=== PATIENT | female | born 1930 | race Caucasian/White ===

== ENCOUNTER 2016-07-29 22:30 | Emergency (ER) | payer OTHER ==
[~2016-07-29] VITALS: Ht 157.5 cm; Wt 45.4 kg
--- NOTE | 2016-07-29 22:42 | NUR ---
PT TRASFERRED TO [facility] FOR FURTHER CARE D/T POSSIBLE S/S OF STROKE DETERMINED BY ER .
[2016-07-29 22:45] VITALS: BP 119/63
--- NOTE | 2016-07-29 22:45 | NUR ---
Dr Nelson assessed pt and instructed EMS to continue on to [facility] due to facial droop and other signs and symptoms of CVA. Did not have time to assess pt.
--- NOTE | 2016-07-29 22:45 | NUR ---
PT TAKEN BY [facility] TO [facility]: RIP OSCAR.
== END 2016-07-29 22:45 | disposition short-term general hospital (02) ==
LOC: MED 22:30
DX: R41.82 Altered mental status, unspecified (principal); G81.00 Flaccid hemiplegia affecting unspecified side; F03.90 Unspecified dementia, unspecified severity, without behavioral disturbance, psychotic disturbance, mood disturbance, and anxiety; I63.9 Cerebral infarction, unspecified
CPT/HCPCS: 99285

== ENCOUNTER 2016-08-07 09:07 | Observation (INO) | payer OTHER ==
[~2016-08-07] VITALS: Ht 152.4 cm; Wt 49.4 kg
[2016-08-07 09:10] VITALS: BP 154/84
--- NOTE | 2016-08-07 09:10 | NUR ---
86/F BIBA FROM [facility] ; C/O ALOC PER [facility] PT HAD BS 66 & GOT GLUCOSE THEN PT HAS AAO X 3. PT DENIES N/V/D; SKIN ; EXCORIATION TO PERINEAM & SCRAHING & BRUISE TO UE& LE , PITTING EDEMA +2 BE. LUNGS CLEAR BL; HR EVEN AND REGULAR; PT DENIES ANY FEVER, CP, SOB, OR COUGH AT THIS TIME; PATIENT STATES PAIN OF 0/10 AT THIS TIME; VSS; PATIENT POSITIONED FOR COMFORT; HOB ELEVATED; BEDRAILS UP X2; BED DOWN. ER MD MADE AWARE OF PT STATUS.
[2016-08-07] MEDS ORDERED: DOCU-67 PO (09:20)
[2016-08-07] MEDS ORDERED: NABU500T3 PO (09:20)
[2016-08-07] MEDS ORDERED: ELA10 PO (09:20)
[2016-08-07] MEDS ORDERED: ACET-2619 PO (09:20)
[2016-08-07] MEDS ORDERED: LACT1CAP83 PO (09:20)
[2016-08-07] MEDS ORDERED: ATOR20TA PO (09:20)
[2016-08-07] MEDS ORDERED: SENN-72 PO (09:20)
[2016-08-07] MEDS ORDERED: ASPI81CT89 PO (09:20)
[2016-08-07] MEDS ORDERED: NACL 0.9% 500 ML IV SCH (09:24)
[2016-08-07] MEDS ORDERED: LEVOFLOXACIN 750 MG/D5W PREMIX 150 ML IV ONE (09:25)
--- NOTE | 2016-08-07 09:34 | NUR ---
PT TAKEN TO CT VIA REBEL ACCOMPANIED BY [employer]ARE[employer]IPPING SUPERVISOR
[2016-08-07 09:45] LABS: BASOPHILS # (AUTO) 0.2 K/uL (0.00-0.22); BASOPHILS % (AUTO) 1.7 % (0.0-2.0); EOSINOPHILS # (AUTO) 0.7 K/uL (0-0.4); EOSINOPHILS % (AUTO) 7.3 % (0.0-4.0); HEMATOCRIT 42.8 % (36-48); HEMOGLOBIN 13.9 g/dL (12.0-16.0); LYMPHOCYTES # (AUTO) 1.3 K/uL (2.5-16.5); LYMPHOCYTES % (AUTO) 13.1 % (20.5-51.1); MEAN CORPUSCULAR HEMOGLOBIN 29 pg (27-31); MEAN CORPUSCULAR HGB CONC 33 g/dL (33-37); MEAN CORPUSCULAR VOLUME 90 fL (80-94); MONOCYTES # (AUTO) 0.6 K/uL (0.8-1.0); MONOCYTES % (AUTO) 5.8 % (1.7-9.3); NEUTROPHILS % (AUTO) 72.1 % (42.2-75.2); PLATELET COUNT (AUTO) 157 K/uL (140-450); RED BLOOD CELL COUNT(AUTO) 4.76 MIL/uL (4.20-5.40); RED CELL DISTRIBUTION WIDTH 13.7 % (11.6-13.7); WHITE BLOOD COUNT (AUTO) 9.8 K/uL (4.8-10.8)
--- NOTE | 2016-08-07 09:50 | NUR ---
PT BACK FROM CT
[2016-08-07 10:02] LABS: ANION GAP 11.4 (8-16); CALCIUM 8.9 mg/dL (8.5-10.1); CARBON DIOXIDE 28.4 mmol/L (21-32); CHLORIDE 106 mmol/L (98-107); GLUCOSE 139 mg/dL (74-106); POTASSIUM 3.8 mmol/L (3.5-5.1); SODIUM SERUM 142 mmol/L (136-145); UREA NITROGEN, BLOOD 11 mg/dL (7-18)
[2016-08-07 10:08] LABS: ALANINE AMINOTRANSFERASE 21 U/L (12-78); ALKALINE PHOSPHATASE 121 U/L (46-116); ASPARTATE AMINOTRANSFERASE 30 U/L (15-37); TOTAL BILIRUBIN 1.3 mg/dL (0.0-1.0)
[2016-08-07 10:11] LABS: INR 1.1 (0.8-1.2); LACTIC ACID 1.1 mmol/L (0.4-2.0); PARTIAL THROMBOPLASTIN TIME 27.2 secs (22-35.6); PROTHROMBIN TIME 10.4 secs (10.8-13.4)
[2016-08-07] MEDS: NACL 0.9% 1,000 ML IV SCH (10:22)
[2016-08-07] MEDS ORDERED: ACETAMINOPHEN 325 MG TAB PO PRN (10:25)
[2016-08-07] MEDS ORDERED: ONDANSETRON 4 MG/2 ML VIAL IVP PRN (10:25)
[2016-08-07] MEDS ORDERED: HYDROcodone/APAP 7.5/325 MG 1 TAB PO PRN (10:25)
[2016-08-07 10:33] LABS: FREE T4 (FREE THYROXINE) 1.62 ng/dL (0.76-1.46); THYROID STIMULATING HORMONE 1.92 uIU/mL (0.34-3.76)
--- NOTE | 2016-08-07 10:38 | NUR ---
GAVE REPORT TO INEZ WELSH
[2016-08-07] MEDS ORDERED: MECLIZINE 25 MG TAB PO PRN (10:40)
--- NOTE | 2016-08-07 10:42 | NUR ---
Patient will be admitted to care of DR FOY. Admited to [facility]. Will go to room 108B. Belongings list completed. Report to INEZ WELSH.
--- NOTE | 2016-08-07 11:15 | NUR ---
PT ON UNIT. NO S/S OF ACUTE DISTRESS. PT DENIES PAIN. FLACC-0. AAOX2. IV SITE PATENT AND INTACT. BRUISING NOTED TO RIGHT HAND AND RIGHT FOOT. O2 SATURATION 99 ON ROOM AIR. PT ORIENTED TO ROOM. CALL LIGHT WITHIN REACH. SAFETY MEASURES ENSURED. BED ALARM ON. WILL CONTINUE TO MONITOR.
[2016-08-07 11:20] LABS: CHOL/HDL RATIO 2.9 (1-4.5); FREE T4 (FREE THYROXINE) 1.71 ng/dL (0.76-1.46); MAGNESIUM 1.8 mg/dL (1.8-2.4); PHOSPHORUS 2.9 mg/dL (2.5-4.9); THYROID STIMULATING HORMONE 1.92 uIU/mL (0.34-3.76)
[2016-08-07 14:13] VITALS: BP 154/75
--- NOTE | 2016-08-07 14:20 | NUR ---
PT RESTING IN BED. NO S/S OF ACUTE DISTRESS. FLACC-0. CALL LIGHT WITHIN REACH. SAFETY MEASURES ENSURED. WILL CONTINUE TO MONITOR.
[2016-08-07 15:27] LABS: BILIRUBIN,URINE NEGATIVE (NEGATIVE); BLOOD, URINE 3+ (NEGATIVE); COLOR,URINE YELLOW (YELLOW); LEUKOCYTE ESTERASE ,URINE TRACE (NEGATIVE); NITRITE, URINE NEGATIVE (NEGATIVE); PH,URINE 5.5 (5.0-9.0); PROTEIN,URINE 1+ (NEGATIVE); UGLUCOSE NEGATIVE (NEGATIVE); UROBILINOGEN,URINE 0.2 EU/dL (0.2 - 1)
[2016-08-07 15:28] LABS: APPEARANCE,URINE HAZY (CLEAR)
[2016-08-07 15:44] LABS: RBC,URINE 11-20 (MOD) /HPF (0-5); WBC,URINE >100 /HPF (0-5)
[2016-08-07 15:45] LABS: BACTERIA,URINE 1+ /HPF (None Seen); SQUAMOUS EPITHELIAL CELL,UR None Seen /LPF (0-3 (FEW))
[2016-08-07 16:00] VITALS: BP 156/72
--- NOTE | 2016-08-07 19:30 | NUR ---
RECEIVED REPORT FROM DAY RN AT BEDSIDE, PATIENT IS AAO X2, CONFUSED, ON ROOM AIR NO SOB OR SIGN OF DISTRESS AT THIS TIME, RESTING IN BED. NOTED IV TO RIGHT AC PATENT AND INTACT, SKIN INTACT WITH BRUISING TO RIGHT UPPER AND LOWER EXTREMITIES AND PERINEAL REDNESS. PATIENT DENIES PAIN AT THIS TIME, DISCUSSED PLAN OF CARE WITH PATIENT , PATIENT VERBALIZED UNDERSTANDING BUT NEEDS REINFORCEMENT. SAFETY MEASURES CHECKED, CALL LIGHT WITHIN REACH. WILL CONTINUE TO MONITOR.
--- NOTE | 2016-08-07 19:35 | NUR ---
ENDORSED PLAN OF CARE TO NIGHT RN. PT REMAINS IN STABLE CONDITION.
[2016-08-07 19:48] VITALS: BP 135/66
[2016-08-07] MEDS: DOCUSATE SODIUM 100 MG GELCAP PO SCH (20:41)
[2016-08-07] MEDS ORDERED: NABUMETONE 500 MG TAB PO SCH (21:00)
[2016-08-07] MEDS ORDERED: AMITRIPTYLINE 10 MG TAB PO SCH (21:00)
[2016-08-07] MEDS ORDERED: ATORVASTATIN 20 MG TAB PO SCH (21:00)
[2016-08-07] MEDS ORDERED: SENNA 8.6 MG TAB PO SCH (21:00)
--- NOTE | 2016-08-07 21:05 | NUR ---
PM MEDS ADMINISTERED, PATIENT TOLERATED WELL, CRUSHED AND MIXED WITH APPLE SAUCE, PATIENT RESTING COMFORTABLE IN BED, NO SIGN OF DISTRESS, WILL CONTINUE TO CLOSELY MONITOR.
--- NOTE | 2016-08-07 22:37 | NUR ---
PATIENT SLEEPING COMFORTABLE, NO SOB OR SIGN OF DISTRESS, CALL LIGHT WITHIN REACH. WILL CONTINUE TO MONITOR
[2016-08-08] VITALS: BP 148/85
--- NOTE | 2016-08-08 00:25 | NUR ---
VITAL SIGNS STABLE, NO SOB OR SIGN OF DISTRESS AT THIS TIME, CALL LIGHT WITHIN REACH. WILL CONTINUE TO MONITOR
--- NOTE | 2016-08-08 02:35 | NUR ---
PATIENT SLEEPING, NO SOB OR SIGN OF DISTRESS, CALL LIGHT WITHIN REACH. WILL CONTINUE TO MONITOR
[2016-08-08 04:00] VITALS: BP 136/82
--- NOTE | 2016-08-08 04:27 | NUR ---
VITAL SIGNS STABLE, NO SOB OR SIGN OF DISTRESS, PATIENT HAD SMALL BM, CLEANED AND REPOSITIONED, PATIENT TOLERATED WELL,CALL LIGHT WITHIN REACH. WILL CONTINUE TO CLOSELY MONITOR.
[2016-08-08 06:13] LABS: BASOPHILS # (AUTO) 0.1 K/uL (0.00-0.22); EOSINOPHILS # (AUTO) 0.5 K/uL (0-0.4); EOSINOPHILS % (AUTO) 3.5 % (0.0-4.0); HEMATOCRIT 40.5 % (36-48); HEMOGLOBIN 13.5 g/dL (12.0-16.0); LYMPHOCYTES # (AUTO) 1.4 K/uL (2.5-16.5); LYMPHOCYTES % (AUTO) 10.2 % (20.5-51.1); MEAN CORPUSCULAR HEMOGLOBIN 30 pg (27-31); MEAN CORPUSCULAR HGB CONC 33 g/dL (33-37); MEAN CORPUSCULAR VOLUME 90 fL (80-94); MONOCYTES # (AUTO) 0.9 K/uL (0.8-1.0); NEUTROPHILS # (AUTO) 10.4 K/uL (1.8-7.7); NEUTROPHILS % (AUTO) 78.3 % (42.2-75.2); PLATELET COUNT (AUTO) 155 K/uL (140-450); RED BLOOD CELL COUNT(AUTO) 4.52 MIL/uL (4.20-5.40); RED CELL DISTRIBUTION WIDTH 13.9 % (11.6-13.7); WHITE BLOOD COUNT (AUTO) 13.3 K/uL (4.8-10.8)
[2016-08-08] MEDS: NACL 0.9% 1,000 ML IV SCH (06:22)
[2016-08-08 06:37] LABS: ANION GAP 12.4 (8-16); CALCIUM 8.5 mg/dL (8.5-10.1); CARBON DIOXIDE 27.6 mmol/L (21-32); CHLORIDE 107 mmol/L (98-107); CREATININE 0.8 mg/dL (0.6-1.3); GLUCOSE 80 mg/dL (74-106); SODIUM SERUM 143 mmol/L (136-145); UREA NITROGEN, BLOOD 10 mg/dL (7-18)
[2016-08-08 06:58] LABS: MAGNESIUM 1.6 mg/dL (1.8-2.4); PHOSPHORUS 2.8 mg/dL (2.5-4.9)
--- NOTE | 2016-08-08 07:20 | NUR ---
RECEIVED PT REPORT AT BEDSIDE FROM NIGHT NURSE. PT IS IN BED RESTING WITH IV NOTED ON THE R AC PATENT AND INTACT. PT SHOWS NO S/S OF DISTRESS ON ROOM AIR. PT AOX2. PT ON TELE MONITORING. PT DENIES PAIN. BED IS LOWERED, SEMI FOWLERS AND CALL LIGHT WITHIN REACH.
--- NOTE | 2016-08-08 07:25 | NUR ---
ENDORSED PATIENT TO DAY RN AT BEDSIDE, PATIENT IN STABLE CONDITION
[2016-08-08 08:00] VITALS: BP 157/78
[2016-08-08] MEDS ORDERED: ASPIRIN 81 MG TAB.CHEW PO SCH (09:00)
[2016-08-08] MEDS ORDERED: PANTOPRAZOLE 40 MG INJ VIAL IVP SCH (09:00)
[2016-08-08] MEDS ORDERED: LACTOBACILLUS RHAMNOSUS GG 1 EACH CAP PO SCH (09:00)
--- NOTE | 2016-08-08 09:00 | NUR ---
RECEIVED CALL FROM LAB REGARDING POS OF MRSA NARES. WILL NOTIFY DR. FOY.
--- NOTE | 2016-08-08 09:15 | NUR ---
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 WILL FOLLOW THROUGH WITH ORDERS.
--- NOTE | 2016-08-08 10:00 | NUR ---
ADMINISTERED SCHEDULED MEDICATIONS. PT TOLERATED WELL. PT BED IS LOWERED WITH CALL LIGHT WITHIN REACH. WILL CONTINUE TO MONITOR.
[2016-08-08] MEDS: DOCUSATE SODIUM 100 MG GELCAP PO SCH (10:10)
[2016-08-08] MEDS ORDERED: MAG SULF 2000 MG/WATER PREMIX 50 ML IV SCH (10:17)
[2016-08-08] MEDS ORDERED: MUPIROCIN 2% OINT 22 GM TUBE TP SCH ×2 (10:19→10:20)
--- NOTE | 2016-08-08 10:19 | NUR ---
PATIENT HAS BEEN SCREENED AND CATEGORIZED MODERATE NUTRITION RISK. PATIENT WILL BE SEEN WITHIN 3-5 DAYS OF ADMISSION. 08/09/16-08/11/[address]
[2016-08-08] MEDS ORDERED: CHLORHEXADINE GLUC 2% CLOTH TP SCH (11:00)
--- NOTE | 2016-08-08 11:20 | NUR ---
ADMINISTERED SCHEDULED MEDICATION. PT IS RESTING IN BED SHOWS NO S/S OF DISTRESS ON ROOM AIR. WILL CONTINUE TO MONITOR.
[2016-08-08 12:00] VITALS: BP 141/72
--- NOTE | 2016-08-08 12:50 | NUR ---
PT BEING SEEN BY PHYSICAL THERAPIST.
--- NOTE | 2016-08-08 14:00 | NUR ---
PT REFUSED LUNCH. PER [facility] PT ALSO REFUSED BREAKFAST. WILL CONTINUE TO MONITOR.
--- NOTE | 2016-08-08 14:30 | NUR ---
PT IN BED SLEEPING AND SHOWS NO S/S OF DISTRESS.
--- NOTE | 2016-08-08 14:33 | NUR ---
CM NOTE IF PATIENT IS DISCHARGED, FOR TRANSPORT USE [facility]#[id number] (FROM [facility] OF [facility] PH# [phone]). CHARGE NURSE MARQUITA AND NURSE JUAREZ CONNOLLY
--- NOTE | 2016-08-08 15:14 | NUR ---
SS NOTE: PER APRIL FROM [facility] ([phone]), PT CAN GO TO ROOM 4C UNDER DR. MILLER. ANIMAL ANATOMY TEACHER MARQUITA CONNOLLY.
[2016-08-08] MEDS ORDERED: CHLO118S2 TP (15:38)
[2016-08-08] MEDS ORDERED: SACC250C1 PO (15:38)
[2016-08-08] MEDS ORDERED: BACTO TP (15:38)
[2016-08-08] MEDS ORDERED: [UNRECOGNIZED DRUG - CODE] PO (15:38)
--- NOTE | 2016-08-08 15:44 | NUR ---
PT IN BED RESTING AND SHOWS NO S/S OF DISTRESS.
[2016-08-08 16:00] VITALS: BP 143/70
--- NOTE | 2016-08-08 16:00 | NUR ---
SPOKE WITH LEONIE FROM [facility] AND GAVE REPORT. LEONIE KNOWS PT IS BEING TRANSPORTED FROM [facility] AT 1900.
[2016-08-08] MEDS ORDERED: CLIN300C2 PO (16:35)
[2016-08-08] MEDS ORDERED: IPRA3AMP IH (16:35)
--- NOTE | 2016-08-08 17:00 | NUR ---
PT DAUGHTER ERIN ARRIVED ONTO UNIT. ANSWERED DAUGHTERS QUESTIONS REGARDING PT'S CARE. DAUGHTER IS AWARE PT IS BEING DISCHARGED TO [facility] AND IS AWAITING [facility] WHICH IS TO ARRIVE AT 1900.
--- NOTE | 2016-08-08 18:50 | NUR ---
CALLED ERIN THE DAUGHTER OF PT REGARDING PT ADMITTING PAPERWORK. DAUGHTER IS AWARE OF FROM MD OF OBSERVATION PROTOCOL UNDER THE INSURANCE AND GAVE CONSENT OVER THE PHONE. VINAYAK WILEY WITNESSED CONSENT.
--- NOTE | 2016-08-08 19:20 | NUR ---
[facility] ARRIVED ONTO UNIT. PT WAS DISCHARGED. ALL DISCHARGE INSTRUCTIONS GIVEN AND PAPERWORK SIGNED BY TWO RNS DUE TO PT INABILITY TO SIGN. ALL BELONGINGS ARE WITH [facility]. IV WAS DISCONTINUED WITH CANNULA INTACT. WRISTBANDS AND TELE MONITORING REMOVED. PT LEFT UNIT ON GURNEY IN STABLE CONDITION.
[2016-08-09] MEDS ORDERED: LEVOFLOXACIN 750 MG/D5W PREMIX 150 ML IV SCH (09:00)
[2016-08-09] MEDS ORDERED: MUPIROCIN 2% OINT 22 GM TUBE TP SCH (09:00)
== END 2016-08-08 19:20 ==
LOC: MED 09:07 → MTU 10:34
PROVIDERS: ADMIT Family Medicine; ATTEND Family Medicine
DX: R41.82 Altered mental status, unspecified (principal); I10 Essential (primary) hypertension; Z86.73 Personal history of transient ischemic attack (TIA), and cerebral infarction without residual deficits; Z98.49 Cataract extraction status, unspecified eye; E78.5 Hyperlipidemia, unspecified; E46 Unspecified protein-calorie malnutrition
CPT/HCPCS: 36415; 70450; 71010; 76705; 80048; 80053; 80061; 81001; 82140; 82150; 82550; 82553; 83036; 83605; 83690; 83735; 83874; 83880; 84100; 84439; 84443; 84484; 85025; 85610; 85730; 87040; 87081; 87086; 87186; 93005; 93307; 93880; 96361; 96365; 96366; 96367; 96375; 97140; 97162; 99285; C1758; C9113; G0378; J1956; J3475; J7030; Q0092